=== PATIENT | male | born 1990 | race Native Hawaiian/Other Pacific Islander ===

== ENCOUNTER 2024-02-23 18:05 | Emergency (ER) | payer SELFPAY ==
--- NOTE | 2024-02-23 18:08 | PC.NURSE ---
pt is refusing vital signs
--- NOTE | 2024-02-23 18:11 | PD.EDRME ---
Rapid Medical Screening Exam RME Arrival date/time: 02/23/24 18:05 Time Seen by Provider: 02/23/24 18:07 RME Narrative: 33-year-old male patient was brought in by law enforcement for medical clearance. Apparently patient is probably high on drugs. Patient is restless and uncooperative. Patient does not want to be examined and seen by me. Risk and benefits was explained to him.
[2024-02-23 18:13] VITALS: BMI 25.7
== END 2024-02-23 18:31 | disposition left against medical advice (07) ==
LOC: SERX 18:25
PROVIDERS: Emergency Provider Emergency Medicine
DX: Z02.1 Encounter for pre-employment examination (principal); Z53.21 Procedure and treatment not carried out due to patient leaving prior to being seen by health care provider